=== PATIENT | female | born 1985 | race Caucasian/White ===

== ENCOUNTER 2018-10-31 13:46 | Emergency (ER) | payer OTHER ==
[~2018-10-31] VITALS: Ht 167.6 cm; Wt 62.8 kg
[~2018-10-31 13:46] MED LIST: CEPHALEXIN500 MG PO; NORCO 5-325 TA1 EACH PO
== END 2018-10-31 14:30 | disposition home or self-care (01) ==
LOC: ED 13:46
DX: R51 Headache (principal)

== ENCOUNTER 2019-01-18 12:09 | Emergency (ER) | payer OTHER ==
[~2019-01-18] VITALS: Ht 167.6 cm; Wt 62.8 kg
[2019-01-18] MEDS ORDERED: KEFLEX500 MG PO (13:05)
== END 2019-01-18 13:13 | disposition home or self-care (01) ==
LOC: ED 12:09
DX: N30.90 Cystitis, unspecified without hematuria (principal); F17.200 Nicotine dependence, unspecified, uncomplicated
CPT/HCPCS: 81001; 87088; 99283

== ENCOUNTER 2020-10-05 00:58 | Emergency (ER) | payer OTHER ==
[~2020-10-05] VITALS: Ht 167.6 cm; Wt 91.4 kg
[~2020-10-05 00:58] MED LIST changes: +KEFLEX500 MG PO
[2020-10-05] MEDS ORDERED: FLONASE ALLERG9.9 ML NAS (01:43)
[2020-10-05] MEDS ORDERED: BENADRYL25 MG PO (01:43)
[2020-10-05] MEDS ORDERED: AFRIN15 M1 NAS (01:43)
== END 2020-10-05 02:20 | disposition home or self-care (01) ==
LOC: ED 00:58
DX: O99.891 Other specified diseases and conditions complicating pregnancy (principal); R09.81 Nasal congestion
CPT/HCPCS: 99283

== ENCOUNTER 2020-10-08 14:13 | Inpatient (IN) | payer OTHER ==
[~2020-10-08] VITALS: Ht 167.6 cm; Wt 91.2 kg
[~2020-10-08 14:13] MED LIST changes: +AFRIN15 M1 NAS; +BENADRYL25 MG PO; +FLONASE ALLERG9.9 ML NAS
--- NOTE | 2020-10-12 10:39 | NUR ---
10/12/20 1039 Jocelyne Jolley BABY TO BREAST. ELIN VALLEJO FROM [facility] IS PRESENT IN THE ROOM TENDING TO MOM AND BABY AND ASSISTING WITH BREAST FEEDING.
--- NOTE | 2020-10-13 13:24 | PR ---
[facility] [address] [place] [address] Signed PP Progress Notes Datetime Report Generated by CPN: 10/13/2020 13:24 SUBJECTIVE: [id number] Pain: Within Normal Limits Nausea/Vomiting: Denies Vital Signs: [id number] Vital Signs: Reviewed; Within Normal Limits Notable Details: PP Hgb/Hct = 8.5/25.8 Abdomen/Uterus: Normal Lochia: Normal Extremities: Normal Incision: Normal IMPRESSION/PLAN/PROCEDURES: [id number] Impression: Normal Progression Other Impression: Anemia Plan: Continue Present Management Procedures: None Progress Notes: Doing well, without complaint, tolerating food well, voiding without difficulty Signing Physician: Emily Kate MD Copies: ~ *Electronically Signed* 10/13/20 1324 EMILY KATE MD PATIENT NAME: ROXI ALMENDAREZ PROGRESS NOTE DATE OF : 83 PHYSICIAN: EMILY KATE MD RPT #: [id number] REPORT IS CONFIDENTIAL AND NOT TO BE RELEASED WITHOUT AUTHORIZATION
--- NOTE | 2020-10-14 08:42 | PR ---
[facility] [address] [facility] [place], [place] [address] Signed PP Progress Notes Datetime Report Generated by CPN: 10/14/2020 08:42 SUBJECTIVE: [id number] Pain: Within Normal Limits Nausea/Vomiting: Denies Vital Signs: [id number] Vital Signs: Reviewed; Within Normal Limits Notable Details: PP Hgb/Hct = 8.5/25.8 Abdomen/Uterus: Normal Lochia: Normal Extremities: Normal Incision: Normal IMPRESSION/PLAN/PROCEDURES: [id number] Impression: Normal Progression Other Impression: Anemia Plan: Discharge Procedures: None Progress Notes: Doing well, without complaint, ready to go home, since baby transported yesterday to [facility] NICU for breathing difficulties. Signing Physician: Emily Kate MD Copies: ~ *Electronically Signed* 10/14/20 0842 EMILY KATE MD PATIENT NAME: ROXI ALMENDAREZ PROGRESS NOTE DATE OF : 83 PHYSICIAN: EMILY KATE MD RPT #: [id number] REPORT IS CONFIDENTIAL AND NOT TO BE RELEASED WITHOUT AUTHORIZATION
--- NOTE | 2020-10-14 10:17 | OR ---
[facility] [address] [place], [place] [address] Signed DATE OF OPERATION: 10/12/2020 SURGEON: Aniceto England MD Patient of Dr. England. PREOPERATIVE DIAGNOSES: Previous shoulder dystocia, previous fourth-degree laceration, macrosomia. POSTOPERATIVE DIAGNOSES: Previous shoulder dystocia, previous fourth-degree laceration, macrosomia. PROCEDURE: Primary low transverse segment section delivery of live male infant. ULTRASONIC HAND SOLDERER: Dr. Braxton. ANESTHESIA: Spinal. ESTIMATED BLOOD LOSS: 600 mL. COMPLICATIONS: None. DRAINS: Ridley to bladder. FINDINGS: Live male infant, Apgars 9 and 9. Weight 9 pounds 14 ounces. Normal uterus. Normal tubes and ovaries bilateral. DESCRIPTION OF PROCEDURE: The patient was brought into the operating room, placed in supine position. After adequate spinal anesthesia was obtained, she was prepped and draped in usual sterile fashion. A Pfannenstiel skin incision was made with a scalpel and extended through the subcutaneous tissue with the Bovie. The fascia was nicked with a scalpel and extended in transverse fashion using curved scissors. The underlying abdominal musculature was Electronically Signed By: ANICETO ENGLAND MD 10/14/20 1017 PATIENT NAME: ROXI ALMENDAREZ OPERATIVE REPORT DATE OF : 83 REPORT #: [id number] PHYSICIAN: ANICETO ENGLAND MD PCP: LUCIO FELIX REPORT IS CONFIDENTIAL AND NOT TO BE RELEASED WITHOUT AUTHORIZATION [facility] [address] [place], [place] [address] Signed bluntly and sharply from the fascia above and below the incision. The abdominal musculature was bluntly and sharply along the midline. The peritoneum was grasped with hemostats, elevated, nicked with curved scissors and extended in vertical fashion using curved scissors. The Chris self-retaining retractor was inserted into the incision and tightened in place. The lower uterine segment was then nicked with scalpel and extended in transverse fashion using curved scissors. Clear fluid came from the incision. The infant was noted to be in a HUI presentation. Infant head easily delivered from the incision. The rest of the infant was easily delivered from the incision. The cord was doubly clamped and cut and passed off table in good condition to the awaiting nurse. The placenta was then manually removed and uterine cavity explored with a lap pad to remove any retained membranes. An angle stitch of 0 Monocryl was placed at one in the incision and a running locking stitch of 0-Monocryl starting at the other end used to close the incision. A 2nd running stitch of 0 Monocryl was used to imbricate the 1st layer. There was still some bleeding at the left angle. This was controlled with two xzxoic-mx-dwhil stitches of 0 Monocryl and this finally did control the bleeding at the angle. The rest of the lower segment had some oozing. The area was irrigated, suctioned, and any superficial bleeding spots were cauterized with the Bovie. Tisseel was then sprayed on the lower uterine segment to help with further hemostasis and good hemostasis was obtained. The Chris retractor was removed and a sheet of ACell placed over the lower uterine segment to help with healing. The anterior wall peritoneum was then closed using running stitch of 2-0 Vicryl suture. The abdominal musculature was reapproximated using interrupted stitches of 0 Vicryl suture. The abdominal wall incision was irrigated, suctioned, examined, and any bleeding spots were cauterized with the Bovie. The remaining Tisseel was sprayed over the abdominal musculature to help with healing and then powdered ACell sprinkled over the abdominal musculature to help with healing. When good hemostasis was obtained, the fascia was closed using two running stitch of 0 Vicryl suture meeting in the midline. Subcutaneous tissue was irrigated, suctioned, examined, and any bleeding spots were cauterized with the Bovie. Subcutaneous tissue was closed using interrupted stitches of 3-0 Vicryl suture and the skin reapproximated using skin clips. The patient tolerated the procedure well and went to the recovery room in good condition. Sponge, needle, and instrument counts were correct at the end of the procedure. MD FREDERIC Copeland/MODL /[id number] Electronically Signed By: ANICETO ENGLAND MD 10/14/20 1017 PATIENT NAME: ROXI ALMENDAREZ OPERATIVE REPORT DATE OF : 83 REPORT #: [id number] PHYSICIAN: ANICETO ENGLAND MD PCP: LUCIO FELIX REPORT IS CONFIDENTIAL AND NOT TO BE RELEASED WITHOUT AUTHORIZATION [address] [address] Signed Copies: ~ Electronically Signed By: ANICETO ENGLAND MD 10/14/20 1017 PATIENT NAME: ROXI ALMENDAREZ OPERATIVE REPORT DATE OF : 83 REPORT #: [id number] PHYSICIAN: ANICETO ENGLAND MD PCP: LUCIO FELIX REPORT IS CONFIDENTIAL AND NOT TO BE RELEASED WITHOUT AUTHORIZATION
== END 2020-10-14 12:31 | disposition home or self-care (01) | DRG 788 ==
LOC: FBC 10-12 06:45
PROVIDERS: ADMIT General Practice; ATTEND General Practice
PROC: 10D00Z1 Extraction of Products of Conception, Low, Open Approach (ICD-10-PCS; principal; 2020-10-12 09:00)
DX: O36.63X0 Maternal care for excessive fetal growth, third trimester, not applicable or unspecified (principal); Z37.0 Single live birth; O99.02 Anemia complicating childbirth; D64.9 Anemia, unspecified; O99.824 Streptococcus B carrier state complicating childbirth; Z3A.39 39 weeks gestation of pregnancy; Z87.891 Personal history of nicotine dependence
CPT/HCPCS: 01961; 36415; 85027; A9270; J0690; J1885; J2001; J2274; J2405; J2590; J7040; J7121

== ENCOUNTER 2021-04-02 09:49 | Emergency (ER) | payer OTHER ==
[~2021-04-02] VITALS: Ht 167.6 cm; Wt 72.3 kg
[2021-04-02] MEDS ORDERED: AMOXICILLIN500 MG PO (10:29)
[2021-04-02] MEDS ORDERED: NASAL DECONGEST30 MG PO (10:29)
== END 2021-04-02 10:30 | disposition home or self-care (01) ==
LOC: ED 09:49
DX: H65.192 Other acute nonsuppurative otitis media, left ear (principal); H69.92 Unspecified Eustachian tube disorder, left ear
CPT/HCPCS: 99282; J1100

== ENCOUNTER 2021-04-05 08:33 | Emergency (ER) | payer OTHER ==
[~2021-04-05] VITALS: Ht 167.6 cm; Wt 72.3 kg
[~2021-04-05 08:33] MED LIST changes: +AMOXICILLIN500 MG PO; +NASAL DECONGEST30 MG PO
--- OUTSIDE RECORDS SUMMARY | 2021-04-05 08:40 | XMS ---
PreManage Notification: ROXI ALMENDAREZ [employer] No recent Security Events currently on file CRITERIA MET - [facility] - 2 Visits in 30 Days CARE PROVIDERS There are no care providers on record at this time. [place] has no Care Guidelines for this patient. [facility] V[facility] COUNT (12 MO.) [facility] [place] [facility] NOTE: Visits indicate total known visits. ED/[facility] VISIT TRACKING (12 MO.) [facility] [place] [facility] COMPLAINT: - L EAR PAIN/HEARING LOSS 04/04/2021 19:39 [facility] [place] TYPE: Emergency COMPLAINT: - EAR PAIN 04/02/2021 09:49 [facility] [place] TYPE: Emergency COMPLAINT: - LEFT EAR PAIN DIAGNOSES: - Other acute nonsuppurative otitis media, left ear - Unspecified Eustachian tube disorder, left ear - Otalgia, left ear 10/05/2020 00:58 [facility] [place] TYPE: Emergency COMPLAINT: - BREATHING PROBLEM DIAGNOSES: - Other specified diseases and conditions complicating - Nasal congestion INPATIENT VISIT TRACKING (12 MO.) 10/12/2020 07:13 [facility]ENN[facility] Fi[facility] [place] TYPE: [facility] COMPLAINT: - PRIMARY SECTION DIAGNOSES: - Personal history of other complications of , childbirth and the puerperium - Anemia complicating childbirth - Anemia complicating childbirth - Personal history of nicotine dependence - Streptococcus B carrier state complicating childbirth - Anemia, unspecified - Anemia of the puerperium - 39 weeks gestation of - Personal history of nicotine dependence - Maternal care for excessive growth, third trimester, not applicable or unspecified - 39 weeks gestation of - Streptococcus B carrier state complicating childbirth - Single live - Single live - Anemia, unspecified [email or web address]
[2021-04-05] MEDS ORDERED: PREDNISONE20 MG PO (09:01)
== END 2021-04-05 09:10 | disposition home or self-care (01) ==
LOC: ED 08:33
DX: H69.92 Unspecified Eustachian tube disorder, left ear (principal)
CPT/HCPCS: 99282; J1100